=== PATIENT | female | born 1965 | race Caucasian/White ===

== ENCOUNTER 2016-12-28 20:14 | Emergency (ER) | payer OTHER ==
[~2016-12-28] VITALS: Ht 165.1 cm; Wt 65.7 kg
[2016-12-28 20:17] VITALS: TEMP 36.6; Ht 165.1 cm; Wt 65.7 kg
[2016-12-28] MEDS ORDERED: PROCHLORPERAZINE 5 MG/ML 2 ML VIAL IV STA (20:32)
[2016-12-28] MEDS ORDERED: KETOROLAC TROMETHAMINE 30 MG/ML VIAL IV STA (20:32)
[2016-12-28] MEDS ORDERED: SODIUM CHLORIDE 0.9% 1000ML 1,000 ML IV STA (20:32)
[2016-12-28] MEDS ORDERED: DiphenhydrAMINE HCL 50 MG/ML VIAL IV STA (20:32)
--- NOTE | 2016-12-28 20:35 | EMERGENCY ROOM VISIT NOTE ---
History Report prepared by Valentine: Joaquin Doshi Under the Supervision of: Dr. Mikye Cooley M.D. First contact with patient: 20:22 Chief Complaint: HEADACHE Stated Complaint: MIGRAINES, NAUSEA History of Present Illness The patient is a 51 year old female who presents to the Emergency Room with complaints of a headache that began this morning. The patient does not speak [place], so there is a friend in the room translating for both parties. She arrived into the [place] from [place] yesterday. She is here visiting. The patient has a history of migraines. She states that this feels like the late stages of her typical migraines. The medications she has taken have not helped the pain at all. She is experiencing nausea as well. She denies any other symptoms. Source of History: patient, friend Onset: this morning Position: head Symptom Intensity: moderate Quality: ache Timing: constant Associated Symptoms: + nausea Note: She denies any other problems. Review of Systems See HPI for pertinent positives & negatives. A total of 10 systems reviewed and were otherwise negative. Past Medical & Surgical Medical Problems: (1) Kidney stones Surgical Problems: (1) Previous section Family History Heart disease Hypertension Kidney disease Kidney stones Social History Smoking Status: Never Smoker Smokeless Tobacco Use: No Alcohol Use: none Drug Use: none Marital Status: Housing Status: lives with significant other Occupation Status: employed Current/Historical Medications Scheduled Rizatriptan Benzoate (Maxalt), 1 TAB PO UD Scheduled PRN Chlorzoxazone (Parafon Forte Dsc), 1,000 MG PO DAILY PRN for PRN Rizatriptan Benzoate (Maxalt), 10 MG PO DAILY PRN for PRN [Mycratine], 60 MG PO DAILY PRN for PRN Miscellaneous Medications [Anti-Depressant], Unknown Dose Allergies Coded Allergies: No Known Allergies (Unverified , 12/28/16) Physical Exam Vital Signs Date Time Temp Pulse Resp B/P Pulse Ox O2 Delivery O2 Flow Rate FiO2 12/28/16 21:52 80 18 132/83 100 12/28/16 20:17 36.6 87 18 175/116 98 Room Air Physical Exam GENERAL: Patient is a healthy-appearing well-nourished HEAD: Normocephalic atraumatic EYES: Ocular movements intact pupils equal and react to light. OROPHARYNX mucous membranes are moist no exudates present no erythema or edema present NECK: Supple no nuchal rigidity. No evidence of meningismus or encephalitis on exam. CHEST: Good equal expansion LUNGS: Clear and equal to auscultation CARDIAC: Normal S1 and S2 ABDOMEN: Soft nontender no guarding BACK: No CVA tenderness EXTREMITIES: No pain upon palpation normal muscle strength in all groups no clubbing cyanosis or edema NEURO: Patient is following commands is answering questions appropriately. Alert and oriented x3 Cranial Nerves 2-12 grossly intact Medical Decision & Procedures Medications Administered Medications (Trade) Dose Ordered Sig/Han Route Start Time Stop Time Status Last Admin Dose Admin Sodium Chloride (Nss 1000ml) 1,000 ml @ 999 mls/hr Q1H1M STAT IV 12/28/16 20:32 12/28/16 21:32 DC 12/28/16 21:01 999 MLS/HR Ketorolac Tromethamine (Toradol Inj) 30 mg NOW STAT IV 12/28/16 20:32 12/28/16 20:34 DC 12/28/16 21:00 30 MG Dexamethasone Sodium Phosphate (Decadron Inj) 10 mg NOW ONCE IV 12/28/16 20:45 12/28/16 20:46 DC 12/28/16 21:01 10 MG Prochlorperazine Edisylate (Compazine Inj) 10 mg NOW STAT IV 12/28/16 20:32 12/28/16 20:34 DC 12/28/16 21:01 10 MG Diphenhydramine HCl (Benadryl Inj) 50 mg NOW STAT IV 12/28/16 20:32 12/28/16 20:34 DC 12/28/16 20:59 50 MG ED Course 2021: Past medical records reviewed. The patient was evaluated in room C11. A complete history and physical examination was performed. 2031: Benadryl Ing 50 mg IV, Compazine Inj 10 mg IV, Toradol inj 30 mg IV, Sodium Chloride 1000 ml @ 999 mls/hr IV 2044: Decadron Inj 10 mg IV 2129: Upon reexamination the patient is resting. I discussed results and treatment plan with the patient. She verbalizes agreement and understanding. The patient is ready for discharge. Medical Decision Differential diagnosis: Etiologies such as migraine headache, meningitis, sinusitis, CO exposure, ICH, SAH, infection, tumor, headache, sinus thrombosis, arterial dissection, as well as others were entertained. This is a 51-year-old female who presents emergency department complaining of headache. Patient has had headaches like this in the past and has no evidence of meningitis or encephalitis on examination. The patient is visiting the country and is also out of Maxalt. Based on these findings, an IV was established, patient given normal saline bolus, Toradol, Compazine, Benadryl, Decadron. I do believe the patient as well as to be discharged home for follow- up with her primary care physician. Patient was given a prescription for Maxalt. Patient was in agreement with the treatment plan. Impression Primary Impression: Headache Scribe Attestation The scribe's documentation has been prepared under my direction and personally reviewed by me in its entirety. I confirm that the note above accurately reflects all work, treatment, procedures, and medical decision making performed by me. Departure Information Dispostion Home / Self-Care Prescriptions Rizatriptan Benzoate (MAXALT) 10 Mg Tab 1 TAB PO UD for 30 Days, #9 TAB Prov: Mikey Cooley MD 12/28/16 Referrals No Doctor, Assigned (PCP) Forms HOME CARE DOCUMENTATION FORM, IMPORTANT VISIT INFORMATION, School Instructions, Work Instructions Patient Instructions ED Headache Migraine, My [facility] Additional Instructions You have been examined and treated today on an emergency basis only. This is not a substitute for, or an effort to provide, complete comprehensive medical care. It is impossible to recognize and treat all injuries or illnesses in a single emergency department visit. It is therefore important that you follow up closely with your PCP. Call as soon as possible for an appointment. Thank you for your time and consideration. I look forward to speaking with you again soon. Please don't hesitate to call us if you have any questions. Problem Qualifiers Primary Impression: Headache Headache type: unspecified Headache chronicity pattern: unspecified pattern Intractability: not intractable Qualified Codes: R51 - Headache
[2016-12-28] MEDS ORDERED: CHLOTAB3 PO (20:39)
[2016-12-28] MEDS ORDERED: ANTI-DEPRESSANT (20:39)
[2016-12-28] MEDS ORDERED: [UNRECOGNIZED DRUG - OTHER] PO (20:39)
[2016-12-28] MEDS ORDERED: RIZA10TA18 PO ×2 (20:39→21:29)
[2016-12-28] MEDS ORDERED: DEXAMETHASONE SOD INJ 10 MG/ML VIAL IV ONE (20:45)
[2016-12-28 21:52] VITALS: BP 132/83; PULSE 80; O2SAT 100
== END 2016-12-28 21:54 | disposition home or self-care (01) ==
LOC: C.EDB 20:16 → C.EDC 21:54
DX: R51 Headache (principal)